=== PATIENT | female | born 1960 | race Caucasian/White ===

== ENCOUNTER 2016-05-02 12:55 | Emergency (ER) | payer OTHER ==
[~2016-05-02] VITALS: Ht 167.6 cm; Wt 80.0 kg
[~2016-05-02 12:55] MED LIST: ADVA250A INH; ALBUS PO; ASPI81TA82 PO; DUONSOL2 NEB; NITR.4 SL; OMEP20TA39 PO; PLAV75TA PO; RANI150 PO; ROSU5 PO; SPIRCAP INH; ZOFR4TAB3 SL; [UNRECOGNIZED DRUG - CODE]
[2016-05-02 12:58] VITALS: BP 129/79; PULSE 98; RESP 36; TEMP 98.4; O2SAT 96
== END 2016-05-02 14:13 | disposition left against medical advice (07) ==
LOC: NETRI 12:55
DX: R05 Cough (principal)
CPT/HCPCS: 99281

== ENCOUNTER 2017-12-21 04:17 | Observation (INO) ==
[2017-12-21] MEDS ORDERED: MethylPREDNISolone Sod Succinate Inj 125 MG/2 ML Vial IV.PUSH ONE (04:27)
[2017-12-21] MEDS ORDERED: Famotidine PF Inj 20 MG/2 ML Vial IV.PUSH ONE (04:27)
--- NOTE | 2017-12-21 04:31 | ED ---
HPI General Chief complaint: Respiratory Symptoms Stated complaint: Short of Breath x 2 days Time Seen by Provider: 12/21/17 04:27 History of Present Illness HPI narrative: Patient is a 57-year-old Hx of COPD female who awoke from sleep tonight at 330 an hour prior to presentation with swelling feeling in her throat she felt like something was flopping there were there was mucus or that her uvula. She said for 2 days she has had progressively with sore throat and now feels like razor blades and swelling and she is rattling in the back of her throat her throat. She came right to ER she did not call he MD and took no medication for this feeling of stabbing sharp pain in posterior oropharynx Related Data Home Medications Medication Instructions Recorded Confirmed Unable to Obtain Home Meds 12/21/17 12/21/17 Allergies Allergy/AdvReac Type Severity Reaction Status Date / Time codeine Allergy Severe DIFF Verified 12/21/17 06:00 BREATHING Review of Systems ROS: all other systems reviewed are negative ENT Reports dysphagia, Reports odynophagia, Reports sore throat and Reports throat swelling PMFSH Social History Social History Smoking Status: Current every day smoker Tobacco Type: Cigarettes How Often Do You Have a Drink Containing Alcohol: Never Recent Travel in [facility] within the Last 8 Weeks: No Recent Out of Country Travel within the Last 8 Weeks: No Exam Narrative Exam Narrative: GENERAL: rattling voice slight hot potato like voice with a rattle no obvious acute resp distress SKIN: Warm and dry. HEAD: Atraumatic. Normocephalic. EYES: Pupils equal and round. No scleral icterus. No injection or drainage. ENT: No nasal bleeding or discharge. Mucous pale and moist. Uvula edema as well as posterior soft palate pale swollen edema mild NECK: Trachea midline. No JVD. + submental nodes swollen anterior cervical; CARDIOVASCULAR: Regular rate and rhythm. RESPIRATORY: No accessory muscle use. Clear to auscultation. Breath sounds equal bilaterally. GASTROINTESTINAL: Abdomen soft, non-tender, nondistended. Hepatic and splenic margins not palpable. MUSCULOSKELETAL: Extremities without clubbing, cyanosis, or edema. No obvious deformities. NEUROLOGICAL: Awake and alert. No obvious cranial nerve deficits. Motor grossly within normal limits. Five out of 5 muscle strength in the arms and legs. rattle to voice slightly hoarse as well PSYCHIATRIC: Appropriate mood and affect; insight and judgment normal. Course Initial Documented Vital Signs Pulse Rate 84 12/21/17 04:35 Respiratory Rate 18 12/21/17 04:35 Pulse Oximetry 93 L 12/21/17 04:35 Last Documented Vital Signs Pulse Rate 85 12/21/17 07:12 Respiratory Rate 20 12/21/17 07:12 Blood Pressure 109/78 12/21/17 07:12 Pulse Oximetry 94 L 12/21/17 06:37 Critical Care Time Critical Care Time: Yes Total Critical Care Time: 30 Attestation: close observation of airway status , immediate medication management of edema to throat . Pt admitted to ICU after 1 hr observation in ER to decide if need for intubation Medical Decision Making MDM Narrative Medical decision making narrative: pt given solumedrol pepid benadryl and NEbs and close monitor for re-eval and ICU admission for close observation and re-eval if intubation needed IN ED responding to medical treatment and immediate intubation not indicated at this time Medical Screen Exam Complete: Yes Emergency Medical Condition: Yes Differential Diagnosis Differential Diagnosis: severe allergic reaction to airway , vs Viral infectin to airway with uvula and posterior pharynx edema that could rapidly progress to airway compromise , Lab Data Result diagrams: 12/21/17 04:40 12/21/17 04:40 Lab Results 12/21/17 12/21/17 Range/Units 04:40 04:40 CBC w Diff Auto diff final WBC 9.8 (4.0-11.0) th/mm3 RBC 5.07 (4.00-5.30) mil/mm3 Hgb 14.1 (11.6-15.3) gm/dL Hct 42.2 (35.0-46.0) % MCV 83.2 (80.0-100.0) fL MCH 27.9 (27.0-34.0) pg MCHC 33.5 (32.0-36.0) % RDW 12.7 (11.6-17.2) % Plt Count 225 (150-450) th/mm3 MPV 9.8 (7.0-11.0) fL Neut % (Auto) 63.5 (16.0-70.0) % Lymph % (Auto) 24.4 (9.0-44.0) % Blaine % (Auto) 6.5 (0.0-8.0) % Eos % (Auto) 5.0 H (0.0-4.0) % Baso % (Auto) 0.6 (0.0-2.0) % Neut # (Auto) 6.2 (1.8-7.7) th/mm3 Lymph # (Auto) 2.4 (1.0-4.8) th/mm3 Blaine # (Auto) 0.6 (0.0-0.9) th/mm3 Eos # (Auto) 0.5 H (0.0-0.4) th/mm3 Baso # (Auto) 0.1 (0.0-0.2) th/mm3 WBC Differential . Differential Comment . Sodium 140 (136-145) meq/L Potassium 3.7 (3.5-5.1) meq/L Chloride 105 (98-107) meq/L Carbon Dioxide 27.7 (21.0-32.0) meq/L Anion Gap 7 (5-15) meq/L BUN 16 (7-18) mg/dL Creatinine 1.00 (0.50-1.00) mg/dL Estimated GFR 57 L (>89) mL/min Random Glucose 97 (74-106) mg/dL Calcium 8.5 (8.5-10.1) mg/dL Total Bilirubin 0.9 (0.2-1.0) mg/dL AST 11 L (15-37) U/L ALT 15 (10-53) U/L Alkaline Phosphatase 96 (45-117) U/L Total Protein 7.2 (6.4-8.2) g/dL Albumin 3.8 (3.4-5.0) g/dL Imaging Data Radiologist's impression: Soft Tissue Neck X-Ray 12/21/17 04:29 CONCLUSION: Negative examination. See report of CT soft tissue neck from today's date for additional details Soft Tissue Neck CT 12/21/17 04:49 CONCLUSION: Left lateral pharyngeal mass process with slight asymmetric enlargement of the ipsilateral cervical lymph nodes Discharge Plan Discharge Disposition Patient Disposition: 30 Still Patient Discharge Order Discharge Orders: AMA Discharge (Routine); Ordered 12/21/17 Ordered By: Jitendra Orourke Physicians Team ED Provider: Drew Cooper Primary Care Provider: Dai Lopez Attending Provider: Jitendra Orourke Other Providers: Buck Rodriguez Status ED Status: Left Department Discharge Information Discharge Date/Time: 12/21/17 08:25
[2017-12-21 04:47] LABS: Baso # (Auto) 0.1 th/mm3 (0.0-0.2); Baso % (Auto) 0.6 % (0.0-2.0); Eos # (Auto) 0.5 th/mm3 (0.0-0.4); Hematocrit 42.2 % (35.0-46.0); Hemoglobin 14.1 gm/dL (11.6-15.3); Lymph # (Auto) 2.4 th/mm3 (1.0-4.8); Lymph % (Auto) 24.4 % (9.0-44.0); Mean Corpuscular HGB Conc 33.5 % (32.0-36.0); Mean Corpuscular Hemoglobin 27.9 pg (27.0-34.0); Mean Corpuscular Volume 83.2 fL (80.0-100.0); Mean Platelet Volume 9.8 fL (7.0-11.0); Mono # (Auto) 0.6 th/mm3 (0.0-0.9); Mono % (Auto) 6.5 % (0.0-8.0); Neut # (Auto) 6.2 th/mm3 (1.8-7.7); Neut % (Auto) 63.5 % (16.0-70.0); Platelet Count 225 th/mm3 (150-450); Red Blood Count 5.07 mil/mm3 (4.00-5.30); Red Cell Distribution Width 12.7 % (11.6-17.2); White Blood Count 9.8 th/mm3 (4.0-11.0)
[2017-12-21 04:52] LABS: Chloride 105 meq/L (98-107); Potassium 3.7 meq/L (3.5-5.1); Sodium 140 meq/L (136-145)
[2017-12-21 04:55] LABS: Calcium 8.5 mg/dL (8.5-10.1)
[2017-12-21 04:56] LABS: Albumin 3.8 g/dL (3.4-5.0); Anion Gap 7 meq/L (5-15); Blood Urea Nitrogen 16 mg/dL (7-18); Carbon Dioxide 27.7 meq/L (21.0-32.0); Glucose,Random 97 mg/dL (74-106)
[2017-12-21 04:59] LABS: Alanine Aminotransferase 15 U/L (10-53); Aspartate Aminotransferase 11 U/L (15-37); Glomerular Filtration Rate 57 mL/min (>89)
[2017-12-21 05:01] LABS: Total Protein 7.2 g/dL (6.4-8.2)
[2017-12-21 05:02] LABS: Alkaline Phosphatase 96 U/L (45-117)
--- NOTE | 2017-12-21 05:33 | CT ---
EXAM DATE: 12/21/2017 5:03 AM EDT AGE/SEX: 57 years / Female INDICATIONS: Throat swelling. CLINICAL DATA: This is the patient's initial encounter. Patient reports that signs and symptoms have been present for 1 day and indicates a pain score of 0/10. MEDICAL/SURGICAL HISTORY: None. None. RADIATION DOSE: 13.45 CTDI (mGy) COMPARISON: No prior exams available for comparison. TECHNIQUE: Helical acquisition was performed using a multirow detector CT scanner without contrast. Using automated exposure control and adjustment of the mA and/or kV according to patient size, radiat ion dose was kept as low as reasonably achievable to obtain optimal diagnostic quality images. DICOM format image data is available electronically for review and comparison. FINDINGS: There is a slightly greater than 2 cm lateral pharyngeal mass process which is slightly heterogeneous in density. There are minimally prominent ipsilateral left neck lymph nodes, largest having a short axis dimension of approximately 12 mm. The visualized brain and orbital facial structures are unremarkable. The parotid and submandibular salivary glands are symmetric and normal. The thyroid is unremarkable for CT appearance. The supraclavicular regions, upper mediastinum and visualized lung apices are clear. The bony elements are benign. CONCLUSION: Left lateral pharyngeal mass process with slight asymmetric enlargement of the ipsilateral cervical l ymph nodes Electronically signed by: Thomas Rivera MD 12/21/2017 5:32 AM EDT
--- NOTE | 2017-12-21 05:38 | XR ---
EXAM DATE: 12/21/2017 4:29 AM EDT AGE/SEX: 57 years / Female INDICATIONS: Sore throat for 2 days. CLINICAL DATA: This is the patient's initial encounter. Patient reports that signs and symptoms have been present for 2 days and indicates a pain score of 5/10. MEDICAL/SURGICAL HISTORY: Emphysema. Chronic obstructive pulmonary disease. Congestive heart failure. section. Stent. COMPARISON: [facility], CT SOFT TISSUE NECK W/O CONTRAST, 12/21/2017. . FINDINGS: Two-view examination of the soft tissues of the neck demonstrates the hypopharyngeal airway to have a grossly normal configuration. The trachea is midline. No radiopaque foreign bodies are seen. CONCLUSION: Negative examination. See report of CT soft tissue neck from today's date for additional details Electronically signed by: Thomas Rivera MD 12/21/2017 5:37 AM EDT
[2017-12-21] MEDS ORDERED: Clindamycin 600 mg/NS Premix 600 MG/50 ML PIGGYBACK IV.SIG SCH (06:00)
[2017-12-21] MEDS ORDERED: Bisacodyl 10 MG Supp RECTAL PRN (06:10)
[2017-12-21] MEDS ORDERED: Sod Chloride 0.9% Inj 1,000 ML IV.CONT SCH (06:15)
[2017-12-21 06:38] VITALS: O2SAT 94
[2017-12-21 07:13] VITALS: BP 109/78; PULSE 85; RESP 20
--- NOTE | 2017-12-21 08:16 | P.AMA ---
AMA Note AMA Statement: Patient Sarah Zambrano has decided to leave the hospital against medical advice. This patient has the capacity to refuse care and understands the risks of leaving, including permanent disability and/or , and has had an opportunity to ask questions about his/her condition. The patient has been informed that he/she may return for care at any time, and follow up has been arranged/advised.
[2017-12-21] MEDS ORDERED: Senna/Docusate Sodium 8.6/50 MG Tablet PO SCH (09:00)
== END 2017-12-21 08:28 | disposition left against medical advice (07) ==
LOC: PHED 04:17 → INTOOBSV 06:10 → PHEDA 06:22
PROVIDERS: ADMIT Internal Medicine; ATTEND Internal Medicine